=== PATIENT | male | born 1990 | race Caucasian/White ===

== ENCOUNTER → 2023-07-29 | Outpatient (REF) | payer OTHER | LOC: M LAB REF 15:49 | PROVIDERS: ATTEND Surgery | DX: L72.3 Sebaceous cyst (principal) ==

== ENCOUNTER → 2023-12-13 | Outpatient (REF) | payer BC, OTHER | LOC: M SMT 12:56 | PROVIDERS: ATTEND Urology | DX: Z30.2 Encounter for sterilization (principal) ==

== ENCOUNTER → 2024-05-01 | Outpatient (REF) | payer BC, OTHER ==
[2024-05-01 10:28] LABS: SEMEN APPEARANCE OPAQUE (OPAQUE); SEMEN VISCOSITY VISCOUS (LIQUID); SEMEN VOLUME 1.8 ml (2.0-5.0); SEMEN pH 8.5 (7.0-8.0); WBC CONCENTRATION >1 M/ml (<=1 M/ml)
== END ==
LOC: M SMT 09:24
PROVIDERS: ATTEND Urology
DX: Z30.8 Encounter for other contraceptive management (principal)